=== PATIENT | female | born 1975 | race Caucasian/White ===

== ENCOUNTER 2018-07-03 20:26 | Emergency (ER) | payer MEDICARE, SELFPAY ==
[2018-07-03 20:32] VITALS: BP 113/70; PULSE 85; RESP 18; TEMP 36.6; O2SAT 100
--- NOTE | 2018-07-03 20:45 | NUR.NOTE ---
MD Bills is a the bedside.
[2018-07-03 20:49] LABS: Bilirubin Negative (Negative); Blood Negative (Negative); Clarity Clear; Glucose Negative (Negative); Ketones Negative (Negative); Leukocyte Esterase Negative (Negative); Nitrite Negative (Negative)
--- NOTE | 2018-07-03 21:11 | ED.GENADUL_ITS ---
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 Refrain from sexual activity until cleared by a provider. Please follow-up with gynecology. Call on Friday. Return to the ER for any worsening or new concerning symptoms. Referrals: [facility] [Provider Group] Medical Decision Making 21:21 --42-year-old female smoker status post remote tubal ligation, maternal history of ovarian cancer, with history of ovarian cyst here with right pelvic cramping over the past 2 weeks, abnormal vaginal spotting over the past 1 week, tender right adnexa. 21:55 -- Pelvic exam performed: no bleeding, mild inflammatory appearance to cervix, scant foul smelling thin white discharge, no fb visualized or palpated, no CMT, ttp rt adnexa. Consider TOA. Plan for ultrasound. 00:25 --ultrasound of the pelvis interpreted by radiology: No evidence of torsion or other acute abnormality. Multiple hypoechoic lesions are present in the uterine myometrium, likely fibroids. One lesion in the uterine myometrium near the fundus demonstrates possible layering debris with enhanced through- transmission, suggesting a cystic component, measuring approximately 13 x 15 x 14 mm. A small amount of fluid is noted in the uterine cavity, nonspecific. The endometrial thickness is within normal limits for age at approximately 7 mm. 9 mm anechoic structure in the right ovary likely small cyst/follicle. Impression: uterine fibroids. Vaginal path negative. GC and chlamydia pending. Possible PID. Willl give ceftriaxone 250mg, flagyl and doxy. Pain to treat with doxycycline and flagyl x14 days. 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 Usual and customary discharge instructions provided. HPI General Mode of arrival: ambulatory . Date/Time Provider Initiated Documentation: 07/03/18 20:43 . Limitations to Documentation: no limitations . Information obtained by: patient . HPI Narrative: 42yo f with history of ovarian cyst, status post tubal ligation remotely, presents with chief complaint of abdominal pain. Patient notes pain in her right pelvic area for the past 2 weeks. Pain is described as cramping. Pain is severe at times. She has been taking ibuprofen for this pain which does seem to help at times. She also has associated vaginal bleeding described as spotting, discharge is malodorous. In a long winder tender monogamous relationship. Family history is significant for mother who of ovarian cancer. She denies associated rash, no recent weight loss, no fever. Of note, patient had similar pain 6 months ago and was seen at an outside hospital and had a CT of her abdomen pelvis as well as ultrasound transvaginal and diagnostic workup was negative and she was told that she likely had a viral illness. 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 OMKAR: 3 Review of Systems Review of Systems All systems reviewed & are unremarkable except as noted in HPI and below Gastrointestinal Denies nausea and Denies vomiting Genitourinary Reports abnormal vaginal bleeding, Denies genital lesions, Denies dysuria and Reports pelvic pain [facility] Social History Smoking/Tobacco Use Status: Current every day Exam Const General: cooperative and no acute distress HENMT Head: normocephalic and atraumatic Mouth: moist mucous membranes Eyes Conjunctivae: normal conjunctivae Sclera: normal sclerae EOM: EOM intact bilaterally Neck Neck: trachea midline and supple Resp Auscultation: clear to auscultation bilaterally, no rales, no rhonchi and no wheezes Cardio Jugular venous pressure: no JVD Rate: regular rate and not tachycardic Rhythm: regular rhythm GI Palpation: soft, not firm, no guarding, no masses, not rigid and tender (rt suprapubic) not in the RLQ, not periumbilically and with no rebound tenderness Skin General skin exam: no rashes or lesions noted Neuro General: alert, awake, oriented x3 and tone normal Extrem General: no edema Psych Appearance: grossly normal Mental Status: mental status grossly normal Speech and Movement: speech and movement normal Course Vital Signs Temperature 36.6 C 07/03/18 20:32 Pulse 85 07/03/18 20:32 Respiratory Rate 18 07/03/18 20:32 Blood Pressure 113/70 07/03/18 20:32 Pulse Oximetry 100 07/03/18 20:32 Temperature 36.6 C 07/03/18 20:32 Temperature Source Temporal Artery Scan 07/03/18 20:32 Pulse 85 07/03/18 20:32 Respiratory Rate 18 07/03/18 20:32 Respiratory Effort 07/03/18 20:35 Blood Pressure 113/70 07/03/18 20:32 Blood Pressure Position Sitting 07/03/18 20:32 Pulse Oximetry 100 07/03/18 20:32 Oxygen Delivery Method Room Air 07/03/18 20:32 Oxygen Flow Rate 0 07/03/18 20:32 Pain Level 8 07/03/18 20:42 Lab/Test Results Lab/Test Results: Laboratory Tests Range/Units 07/03/18 20:42 Urine Color (Yellow) Yellow Urine Clarity Clear Urine pH (5-8) 7.0 Ur Specific [place] (1.005-1.025) 1.020 Urine Protein (Negative) mg/dL Negative Urine Ketones (Negative) mg/dL Negative Urine Blood (Negative) Negative Urine Nitrite (Negative) Negative Urine Bilirubin (Negative) Negative Urine Urobilinogen (Up TO 0.2) EU/dL 1.0 H Ur Leukocyte Esterase (Negative) Negative Urine Glucose (Negative) mg/dL Negative POC- Test(urine) Negative
[2018-07-03] MEDS: Acetaminophen 325 MG TAB 650 MG PO (21:15)
--- NOTE | 2018-07-03 21:56 | DI.US_ITS ---
SYMPTOM/DIAGNOSIS: PAIN RT ADNEXA, ABNORMAL DISCHARGE PELVIC ULTRASOUND: Transabdominal and transvaginal examination was performed. The uterus measures 7.8 cm long x 5 cm AP x 5.8 cm transverse. The endometrial stripe was within normal limits at 0.7 cm. There are multiple hypoechoic masses within the uterus likely reflecting fibroids. The largest measures 1.3 x 1.5 x 1.4 cm and contains a cystic component with some layering debris. The lesion is avascular. A few tiny endometrial calcifications are noted. The right ovary measures 2 x 2 x 1.8 cm. Normal blood flow is identified by Doppler. There is a 9 mm cyst or follicle in the right ovary. The left ovary measures 3.4 x 1.1 x 2.4 cm and contains a 1.2 cm follicle or cyst. There is normal blood flow seen to the left ovary. No free pelvic fluid or hydronephrosis is identified. IMPRESSION: 1. Multiple uterine fibroids. 2. No evidence of an acute abnormality. No evidence of ovarian torsion.
[2018-07-04] MEDS: Doxycycline Hyclate 100 MG CAP PO (00:12)
[2018-07-04] MEDS: metroNIDAZOLE 500 MG TAB PO (00:12)
[2018-07-04] MEDS: cefTRIAXone 250 MG VIAL IM (00:12)
--- NOTE | 2018-07-04 00:19 | DI.VRAD_ITS ---
EXAM: US Pelvis Complete, Transabdominal and US Pelvis, Transvaginal EXAM DATE/TIME: 07/03/2018 11:21 PM CLINICAL HISTORY: 42 years old, female; Signs and symptoms; Other: Mid/right pelvic pain x 2 weeks, abnormal discharge, spotting; Prior surgery; Surgery date: 6+ months; Surgery type: Tubal ligation 4 years ago; Patient HX: Similar issue 6 months ago, negative CT at another facility per patient. TECHNIQUE: Real-time transabdominal and transvaginal pelvic ultrasound (complete) with image documentation. Transvaginal imaging was used for better evaluation of the endometrium and adnexa. COMPARISON: No relevant prior studies available. FINDINGS: Uterus/cervix: The uterus is anteverted. Multiple hypoechoic lesions are present in the uterine myometrium, likely fibroids. One lesion in the uterine myometrium near the fundus demonstrates possible layering debris with enhanced through transmission, suggesting a cystic component, measuring approximately 13 x 15 x 14 mm. A small amount of fluid is noted in the uterine cavity, nonspecific. A few endometrial calcifications are noted. The endometrial thickness is within normal limits for age at approximately 7 mm. Right adnexa: 9 mm anechoic structure in the right ovary, likely a small cyst/follicle. The right ovary appears normal in size and echotexture, with normal color Doppler blood flow and spectral Doppler waveforms, measuring approximately 2.0 x 2.0 x 1.8 cm. Left adnexa: 13 mm cystic lesion in the left ovary with low level internal echoes, possibly a small hemorrhagic cyst. The left ovary otherwise appears normal in size and echotexture, with normal color Doppler blood flow, measuring approximately 3.4 x 1.1 x 2.4 cm. Free fluid: None. Bladder: Normal. IMPRESSION: 1. No evidence of torsion or other acute abnormality. 2. Uterine fibroids. Dictated and Authenticated by: Chris Pickens MD. Ordering:KELLY SMITH MD
[2018-07-04 00:38] VITALS: BP 113/70; PULSE 85; RESP 18; TEMP 36.6; O2SAT 100
[2018-07-06 15:02] LABS: Chlamydia Result Negative; GC Result Negative
== END 2018-07-04 00:37 | disposition home or self-care (01) ==
PROVIDERS: Emergency Provider Student in an Organized Health Care Education/Training Program
DX: R10.2 Pelvic and perineal pain (principal); N93.9 Abnormal uterine and vaginal bleeding, unspecified; D25.9 Leiomyoma of uterus, unspecified
CPT/HCPCS: 81025; 87491; 87591; 96372; 99284; 76830; 76856; 81003; 87480; 87510; 87660; J0696

== ENCOUNTER → 2018-12-28 09:44 | Outpatient (REF) | payer MEDICARE, SELFPAY ==
--- NOTE | 2018-12-28 09:00 | PAPFT_PTH ---
PATIENT: PATTY PATEL LOC: [facility] #:[id number] AGE/SX: 49/F ROOM: RE12/28/[address]: Franca Villagomez : 1975 BED: DIS: SPEC #: [id number] RECD: 12/28/18 12:50 STATUS: DARRICK VELASQUEZ #: [id number] PAT: 12/28/18 09:[address]: Franca Villagomez DEPT: [facility] Cytology RECD BY: Jessica Joyner Tissues: 1 - CX/ENDOCX FOR PAP SMEARS Procedures: PAP THIN PREP/UVM Screening HPV DNA PROBE Comments: [id number]
== END ==
LOC: NCHCN 09:44
PROVIDERS: PCP Nurse Practitioner; Visit Provider Nurse Practitioner
DX: Z12.4 Encounter for screening for malignant neoplasm of cervix (principal); Z11.51 Encounter for screening for human papillomavirus (HPV)
CPT/HCPCS: 88142; 87624